=== PATIENT | female | born 1975 | race Caucasian/White ===

== ENCOUNTER 2017-08-19 19:59 | Emergency (ER) | payer OTHER ==
[~2017-08-19] VITALS: Ht 160 cm; Wt 111.1 kg
[~2017-08-19 19:59] MED LIST: ARIP400S3 IM; BUPR200T2 PO; DIVA250T PO; ENAL10TA PO; METF-716 PO; VENL150C2 PO
[2017-08-19 20:15] VITALS: BP_SYST 122
[2017-08-20] MEDS ORDERED: KETOROLAC TROMETHAMINE 60 MG/2 ML VIAL IM ONE (00:30)
[2017-08-20 00:42] VITALS: BP_SYST 120
== END 2017-08-20 00:42 | disposition home or self-care (01) ==
LOC: SED 19:59
DX: M13.812 Other specified arthritis, left shoulder (principal); J44.9 Chronic obstructive pulmonary disease, unspecified; E11.9 Type 2 diabetes mellitus without complications; I10 Essential (primary) hypertension; Z88.2 Allergy status to sulfonamides; Z88.1 Allergy status to other antibiotic agents; Z88.8 Allergy status to other drugs, medicaments and biological substances; Z79.899 Other long term (current) drug therapy
CPT/HCPCS: 73030; 96372; 99284; J1885

== ENCOUNTER 2018-11-15 19:56 | Emergency (ER) | payer OTHER, MEDICAID ==
[~2018-11-15] VITALS: Ht 160 cm; Wt 122.5 kg
[~2018-11-15 19:56] MED LIST changes: -METF-716 PO; +METF-833 PO
[2018-11-15 20:02] VITALS: BP_SYST 155
--- NOTE | 2018-11-15 22:27 | NUR ---
Pt ambulatory to bed 4 for evaluation
--- NOTE | 2018-11-15 22:30 | NUR ---
Patient AOx4, ambulatory, presents to ER with complaint of low back pain radiating to left hip x a few days. Patient states no injury or trauma. Patient states pain is worse with movement. No other symptoms or complaints.
--- NOTE | 2018-11-15 22:40 | NUR ---
ER MD Cyr at bedside for medical evaluation.
[2018-11-15] MEDS ORDERED: KETOROLAC TROMETHAMINE 60 MG/2 ML VIAL IM ONE (23:00)
[2018-11-15 23:33] VITALS: BP_SYST 155
--- NOTE | 2018-11-15 23:35 | NUR ---
Patient given written and verbal discharge instructions and verbalizes understanding. ER MD discussed with patient the results and treatment provided. Patient in stable condition. ID arm band removed. Rx of Motrin and Flexeril given. Patient educated on pain management and to follow up with PMD. Pain Scale 2/10 tolerable for pt. Opportunity for questions provided and answered. Medication side effect fact sheet provided.
== END 2018-11-15 23:33 | disposition home or self-care (01) ==
LOC: SED 19:56
DX: M54.30 Sciatica, unspecified side (principal); J44.9 Chronic obstructive pulmonary disease, unspecified; E11.9 Type 2 diabetes mellitus without complications; I10 Essential (primary) hypertension; Z88.8 Allergy status to other drugs, medicaments and biological substances; Z79.899 Other long term (current) drug therapy
CPT/HCPCS: 72100; 96372; 99283; J1885